=== PATIENT | male | born 1965 | race Caucasian/White ===

== ENCOUNTER 2023-01-06 10:01 | Outpatient (REF) | payer OTHER, SELFPAY ==
[2023-01-06 11:11] LABS: MANUAL DIFF FLAG NO
[2023-01-06 11:19] LABS: Basophils Absolute Auto 0.1 X10*3/uL (0.0-0.2); Basophils Percent Auto 0.9 % (0-2); Eosinophils Absolute Auto 0.3 X10*3/uL (0.0-0.4); Eosinophils Percent Auto 3.9 % (0-4); Hematocrit 45.9 % (42.0-52.0); Hemoglobin 14.3 g/dl (14.0-18.0); Imm Gran Abs Auto 0.03 X10*3/uL (0.00-0.03); Imm Gran Pct Auto 0.4 % (0.0-0.4); Lymphocytes Absolute Auto 1.2 X10*3/uL (1.2-4.9); Lymphocytes Percent Auto 14.6 % (20-40); Mean Corpuscular HGB Conc 31.2 g/dl (31.0-36.0); Mean Corpuscular Hemoglobin 31.3 pg (27.0-33.0); Mean Corpuscular Volume 100.4 fL (80.0-98.0); Mean Platelet Volume 12.6 fL (9.4-12.4); Monocytes Absolute Auto 0.6 X10*3/uL (0.1-1.2); Monocytes Percent Auto 7.3 % (2-11); Neutrophils Absolute Auto 5.7 x10*3/uL (2.0-8.3); Neutrophils Percent Auto 72.9 % (45-73); Platelet Count 160 X10*3/uL (160-400); Red Blood Count 4.57 X10*6/uL (4.60-5.80); Red Cell Distribution Width 13.9 % (11.0-16.0); White Blood Count 7.9 X10*3/uL (4.8-10.8)
[2023-01-06 11:22] LABS: Appearance Urine Clear; Color Urine Yellow; Glucose Urine UA >=1000 mg/dL (Negative); Leukocyte Esterase Urine Negative (Negative); Nitrite Urine Negative (Negative); Specific Gravity - Urine >= 1.030 (1.005-1.025); UMIC TRIGGER UACC YES; Urine Blood Small (1+) (Negative); Urine Ketones Negative (Negative); Urine Protein >=1000 (4+) mg/dL (Neg-Trace)
[2023-01-06 11:48] LABS: Estimated Average Glucose 128 mg/dL; Hemoglobin A1c % 6.1 %
[2023-01-06 11:51] LABS: Bacteria Urine None Seen (None Seen); RBC Urine 0-2 /HPF (0-2); Squamous Epithelial Cell Urine 0-2 /HPF (0-2); WBC Urine 0-5 /HPF (0-5)
[2023-01-06 12:01] LABS: Alanine Aminotransferase 29 U/L (0-40); Albumin Level 4.1 g/dL (3.5-5.0); Alkaline Phosphatase 122 U/L (39-117); Anion Gap 11 (12-20); Aspartate Amino Transferase 23 U/L (5-37); Bilirubin Total 0.5 mg/dL (0.0-1.0); Blood Urea Nitrogen 12 mg/dL (9-16); Calcium 9.6 mg/dL (8.4-10.2); Carbon Dioxide 36 mmol/L (22-29); Chloride 99 mmol/L (96-108); Cholesterol 187 mg/dL; Estimated Glomerular Filt Rate > 60; Glucose Fasting 146 mg/dL (60-99); HDL Cholesterol 50 mg/dL; LDL Cholesterol Calculated 106 mg/dl; Potassium 5.1 mmol/L (3.3-5.1); Prostate Specific Antigen Scr 0.51 ng/mL (<0.05-4.0); Sodium 141 mmol/L (135-145); TSH reflex Free T4 0.85 uIU/mL (0.32-4.0); Total Protein 7.1 g/dL (6.5-8.0); Triglycerides 156 mg/dL
[2023-01-06 12:10] LABS: Creatinine Urine 148.88 mg/dL
[2023-01-06 12:19] LABS: Microalbumin Urine > 2000.0 mg/L
== END 2023-01-06 10:02 | disposition home or self-care (01) ==
LOC: HO.HMGCLDS 10:01
PROVIDERS: PCP Nurse Practitioner Family; Visit Provider Nurse Practitioner Family
DX: Z12.5 Encounter for screening for malignant neoplasm of prostate (principal); E11.9 Type 2 diabetes mellitus without complications
CPT/HCPCS: 36415; 80053; 80061; 81001; 82043; 83036; 84153; 84443; 85025

== ENCOUNTER 2023-05-11 09:12 | Outpatient (AMB) | payer OTHER, SELFPAY ==
[2023-05-11 09:22] VITALS: BP 160/88; PULSE 89; O2SAT 91; BMI 43.9
--- NOTE | 2023-05-11 09:22 | MHC.PC.OV ---
Vital Signs 05/11/23 09:22 Height 5 ft 6 in Weight 272 lb BMI 43.9 BP 160/88 H Blood Pressure Location Lt brachial Position Sitting Pulse 89 Pulse Source Pulse Oximeter Pulse Oximetry (%) 91 L Oxygen Delivery Method Nasal Cannula Intake Visit Reasons: 3m follow up Allergies lisinopril Allergy (Unknown, Verified 05/11/23 09:24) angioedema Medication List - Last Reconciled 05/11/23 by ROMA Kaur albuterol sulfate 2.5 mg (3 mL) inhalation QID PRN 30 days albuterol sulfate 90 mcg/actuation 2 puffs PO Q6H PRN aspirin 81 mg PO DAILY atorvastatin 40 mg PO QPM cholecalciferol (vitamin D3) 50 mcg PO DAILY empagliflozin (Jardiance) 10 mg PO DAILY isosorbide mononitrate ER 30 mg PO DAILY metformin 500 mg PO BID metoprolol tartrate 25 mg PO BID 90 days mometasone-formoterol 200-5 mcg/actuation (Dulera) 2 puffs PO BID umeclidinium 62.5 mcg/actuation (Incruse Ellipta) 1 inh PO DAILY Tobacco use date assessed: 05/11/23 Dental Screening Dental Screen Date: 05/11/23 Did you have a dental visit in the last 12 months?: No Did you have a dental problem in the last 6 months where you did not have access to dental care?: No Was dental information given to patient?: Patient has dentist HPI 3m follow up HPI Details Pt is a diabetic, on a statin. A1C in office today is 6.4. Microalbumin is up to date. Denies polyuria, polydipsia, and neuropathy. Pt denies any signs and symptoms of hypoglycemia and does know how to correct it. Pt does not check his blood sugar often. Due for eye exam, will refer to optometry. Pt reports shortness of breath with slightest movements. He is wearing oxygen. Pt also reports intermittent palpitations. Will do an EKG in office. Will also order stress test due to comorbidities. Pt is not on an EMIL/ARB due to hx of angioedema. NOTE: pt describes a white coat syndrome , will challenge this with BPs from home, will adjust meds accordingly. [facility] Surgical History History of torn meniscus of left knee History of umbilical hernia Family History Father COPD (chronic obstructive pulmonary disease) Smoker Substance use disorder Mother COPD (chronic obstructive pulmonary disease) Smoker Substance use disorder Maternal Grandfather Smoker COPD (chronic obstructive pulmonary disease) Sister Mental health disorder Son No problems noted. Daughter No problems noted. Social History Housing: Apartment Patient Tobacco Use Status: Current someday Tobacco user Tobacco use type: Cigarette e-Cigarette/Vaping Use: Never Used Second Hand Smoke Exposure: Yes service: No Current occupational status: disabled Cognitive needs: No Hearing needs: No Vision needs: No Questionnaire Thrive Questionnaire Date Thrive assessed: 08/05/22 JIM-7 AMB Questionnaire JIM-7 Date JIM - 7 assessed: 08/05/22 Source: Developed by Drs. Jabari Villalta, Yaquelin Cintron, Evan Wu and colleagues, with an educational taran from [employer]. Review of Systems Const Reports as per HPI Physical exam (Primary Care) Vital Signs: Last Vital Signs Pulse 89 05/11/23 09:22 BP 160/88 H 05/11/23 09:22 Pulse Ox 91 L 05/11/23 09:22 Oxygen Delivery Method Nasal Cannula 05/11/23 09:22 BMI result Body Mass Index 43.9 Tobacco/Smoking Status: Tobacco use Status Tobacco use date assessed 05/11/23 05/11/23 09:25 Patient Tobacco Use Status Current someday Tobacco 05/11/23 09:25 Tobacco use type Cigarette 05/11/23 09:25 e-Cigarette/Vaping Use Never Used 05/11/23 09:25 Thrive Assessment: Date of Thrive Assessment Date Thrive assessed 08/05/22 05/11/23 09:25 Const General: cooperative Nutritional Appearance: obese morbidly obese Orientation/consciousness: patient oriented x3 Resp Other: lungs very diminished Effort & Inspection: normal respiratory effort Cardio Rate: regular rate Rhythm: regular rhythm Heart sounds: S1 normal heart sound present, S2 normal heart sound present and Murmur heart sound present systolic Neuro General: patient oriented x3 Psych Appearance: grossly normal Mental Status: mental status grossly normal Speech and movement: Normal speech and movement present Affect: normal affect Attitude: cooperative Thought process: Normal thought process present Thought content: Normal thought content present Insight: Good insight present (Psych) Judgement: Good judgement present (Psych) Results AMB Hemoglobin A1c AMB Hemoglobin A1c 6.4 % Last Edit by Olivia Zambrano CMA on 05/11/23 10:02 Assessment and Plan Assessment & Plan (1) Diabetes: Code(s): E11.9 - Type 2 diabetes mellitus without complications Plan: Labs ordered (2) Papular eruption: Code(s): R21 - Rash and other nonspecific skin eruption (3) Murmur: Code(s): R01.1 - Cardiac murmur, unspecified (4) COPD (chronic obstructive pulmonary disease): Code(s): J44.9 - Chronic obstructive pulmonary disease, unspecified (5) Morbid obesity: Code(s): E66.01 - Morbid (severe) obesity due to excess calories (6) Psoriasis: Code(s): L40.9 - Psoriasis, unspecified (7) Palpitations: Code(s): R00.2 - Palpitations Plan The patient agreed to the use of a director medical for this encounter. Scribed for BETTINA Springer- by Nia Whitney director medical, on 05/11/2023 at 09:30 EST Orders: Orders Complete Blood Count Auto Diff Today E11.9 - Type 2 diabetes mellitus without complications UA CC w/rflx Micro + Cult Today E11.9 - Type 2 diabetes mellitus without complications AMB Hemoglobin A1c Today E11.9 - Type 2 diabetes mellitus without complications, E66.01 - Morbid (severe) obesity due to excess calories, J44.9 - Chronic obstructive pulmonary disease, unspecified, R01.1 - Cardiac murmur, unspecified NM cardiolite stress test Today E11.9 - Type 2 diabetes mellitus without complications, E66.01 - Morbid (severe) obesity due to excess calories, R00.2 - Palpitations AMB EKG-In Office Today R00.2 - Palpitations Comprehensive Forrest. Panel Fast Today E11.9 - Type 2 diabetes mellitus without complications TSH reflex Free T4 Today E11.9 - Type 2 diabetes mellitus without complications Lipid Panel Today E11.9 - Type 2 diabetes mellitus without complications CA echo transthoracic complete Today E66.01 - Morbid (severe) obesity due to excess calories, J44.9 - Chronic obstructive pulmonary disease, unspecified, R01.1 - Cardiac murmur, unspecified CA stress test Today E11.9 - Type 2 diabetes mellitus without complications, E66.01 - Morbid (severe) obesity due to excess calories, J44.9 - Chronic obstructive pulmonary disease, unspecified, R00.2 - Palpitations Referrals Optometry Referral E11.9 - Type 2 diabetes mellitus without complications Dermatology Referral L40.9 - Psoriasis, unspecified, R21 - Rash and other nonspecific skin eruption Coding Level of Care Code Est Pt Level 3 (80452) Diagnoses Diabetes E11.9 Papular eruption R21 Murmur R01.1 COPD (chronic obstructive pulmonary disease) J44.9 Morbid obesity E66.01 Psoriasis L40.9 Palpitations R00.2
== END 2023-05-11 10:12 | disposition home or self-care (01) ==
PROVIDERS: PCP Nurse Practitioner Family; Visit Provider Nurse Practitioner Family
DX: E11.9 Type 2 diabetes mellitus without complications (principal); J44.9 Chronic obstructive pulmonary disease, unspecified; E66.01 Morbid (severe) obesity due to excess calories; Z68.41 Body mass index [BMI] 40.0-44.9, adult; R21 Rash and other nonspecific skin eruption; R01.1 Cardiac murmur, unspecified; L40.9 Psoriasis, unspecified; R00.2 Palpitations
CPT/HCPCS: 83036; 99213

== ENCOUNTER → 2023-07-28 13:35 | Outpatient (REF) | payer OTHER, SELFPAY ==
--- NOTE | 2023-07-28 13:38 | CA_ITS ---
Transthoracic Echocardiogram Patient (Last, First, Middle): Jacques Sol, Gender: Male Date of : 1965 Age: 57 Procedure Date: 07/28/2023 Procedure Type: Transthoracic Echocardiogram Location: OP Height: 167.64 cm Weight: 122.47 kg BSA: 2.27 m2 Heart Rate: bpm BP: 170 / 100 mmHg Transit Manager: RAMA/PANCHO Referring MD: Matty Rivera [facility] Symptoms: R01.1 - Cardiac murmur, unspecified Study Quality: Fair/Contrast ECG Rhythm: Sinus Conclusions: - The left ventricular systolic function is normal. The visually estimated ejection fraction is between 65-70%. - No obvious valvular pathology seen on this study. Findings Procedure Information Contrast agent, definity, is being given per protocol without apparent complications. Left Ventricle Normal left ventricular cavity size. The left ventricular systolic function is normal. The visually estimated ejection fraction is between 65-70%. There is no evidence of regional wall motion abnormalities. Diastolic function is normal for age. There is mild septal asymmetric hypertrophy. Right Ventricle Mildly increased right ventricular cavity size. There is normal right ventricular systolic function. Atria Both atria are normal in size. Aortic Valve The aortic valve was not well visualized. There is no aortic valve stenosis. There is no aortic valve regurgitation. Mitral Valve The mitral valve appears normal. There is no mitral valve regurgitation. There is no mitral valve stenosis. Pulmonic Valve The pulmonic valve is likely normal. Tricuspid Valve There is trace tricuspid valve regurgitation. There is no evidence of pulmonary hypertension. Great Vessels The aorta was not well visualized. The aortic annulus is normal in size. Venous The inferior vena cava is dilated and collapses greater than 50% with inspiration. Pericardium/Pleural There is no evidence of pericardial effusion. Prior Study Comparison No prior study available for comparison. Recommendations, Care & Conclusions No obvious valvular pathology seen on this study. Measurements 2D Linear Measurements IVSd: 1.35 0.6-0.9/0.6-1.0 cm LVIDd: 5.92 3.9-5.3/4.2-5.9 cm LVIDd Index: 2.61 2.4-3.2/2.2-3.1 cm/m2 LVIDs: 3.90 2.0-3.6 cm LVPWd: 0.71 0.7-1.1 cm LA Diam: 2.90 2.7-3.8/3.0-4.0 cm LAIDs Index: 1.28 1.5-2.3 cm/m2 LV Mass: 312.13 67-162/88-224 g LV Mass Index: 137.50 43-95/49-115 g/m2 LVOT Diam: 2.20 3.0+(-)1.3 cm 2D Systolic Function EF 4C: 73.00 >55% EF 2C: 82.90 >55% EF BiP: 77.70 >55% Mitral Valve MV Pk E: 0.74 MV PK A: 0.77 MV Decel Time: 187.00 E/A: 1.00 E'Lateral: 11.50 E'Medial: 7.29 E/E' Med: 10.10 E/E' Lat: 6.40 PHT: 55.00 MVA PHT: 4.00 Decel [place]: 3.94 Aortic Valve AoV Pk Parveen: 1.78 AoV Mn Parveen: 1.20 AoV VTI: 0.27 AoV Pk Grad: 13.00 Aov Mn Grad: 6.00 RACIEL Cont.VTI: 3.40 LVOT LVOT Pk Parveen: 1.45 LVOT Mn Parveen: 0.88 LVOT VTI: 0.24 LVOT Pk Grad: 8.00 LVOT Mn Grad: 4.00 LVOT Diam: 2.20 LVOT Area: 3.80 Diastolic Function MV Pk E: 0.74 MV Pk A: 0.77 E/A: 1.00 E'Medial: 7.29 E/E' Med: 10.10 E' Laterial: 11.50 E/E' Lat: 6.40 Right Ventricle TAPSE (mm): 24.20 TVS' Parveen: 17.70 Tricuspid Valve TR Pk Parveen: 1.23 TR Pk Grad: 6.00 RA Press: 8.00 RVSP: 14.00 Great Vessels Aorta Sinus of Valsalva: 3.30 2.0-3.5 cm Ao Asc: 3.40 2.1-3.4 cm Updated in Other Vendor System with Status of Final Vinny Zambrano MD electronically signed on 07/29/2023 12:35:16 PM with status of Final
== END ==
LOC: HO.CARD 13:35
PROVIDERS: PCP Nurse Practitioner Family; Visit Provider Nurse Practitioner Family
DX: R01.1 Cardiac murmur, unspecified (principal); E66.01 Morbid (severe) obesity due to excess calories; J44.9 Chronic obstructive pulmonary disease, unspecified
CPT/HCPCS: 93306; Q9957

== ENCOUNTER → 2023-07-28 13:38 | Outpatient (BNV) | payer OTHER, SELFPAY | PROVIDERS: PCP Nurse Practitioner Family; Visit Provider Internal Medicine | DX: R00.2 Palpitations (principal) | CPT/HCPCS: 93306 ==

== ENCOUNTER → 2023-11-22 09:02 | Outpatient (REF) | payer OTHER, SELFPAY | LOC: HO.CARD 09:02 | PROVIDERS: PCP Nurse Practitioner Family; Visit Provider Nurse Practitioner Family | DX: Z13.89 Encounter for screening for other disorder (principal) ==